=== PATIENT | male | born 1965 | race Caucasian/White ===

== ENCOUNTER 2016-12-28 13:09 | Emergency (ER) | payer OTHER ==
[~2016-12-28] VITALS: Ht 182.9 cm; Wt 76.0 kg
[~2016-12-28 13:09] MED LIST: AMBIEN; AMBIEN CR6.25 MG PO; BACLOFEN10 MG PO; BACTRIM,SEPT1 TABLET; Bactroban Nasal Oint BOTH NARES; COMBIVENT200 INHALA IH; Chronulac,Cephulac,E PO; Colace PO; Combivent IH; DILAUDID4 MG PO; DURAGESIC50 MCG TD; FENTANYL; GABAPENTIN300 MG PO; KADIAN30 MG PO; KEFLEX500 MG; MORPHINE SULFAT30 M5 PO; MS CONTIN,ORAMO15 M1 PO; NEURONTIN600 MG PO; ONDANSETRON HCL4 M1 PO; OXYCODONE-ACET1 EACH PO; PERCOCET; PERCOCET 5/31 TABLET PO; RESTORIL15 MG PO; Robitussin, Organidi PO; SENOKOT S,PE1 TABLET PO; SKELAXIN800 MG PO; SOMA350 MG PO; Tylenol Regular Stre PO; ULTRAM50 MG PO; ZOFRAN4 MG PO; ZYVOX600 MG PO
[2016-12-28] MEDS ORDERED: GABAPENTIN400 MG PO (14:17)
[2016-12-28] MEDS ORDERED: QUETIAPINE FUM200 MG PO (14:18)
[2016-12-28] MEDS ORDERED: METHOCARBAMOL750 MG PO (14:20)
[2016-12-28] MEDS ORDERED: OXYCODONE HCL10 MG PO (14:22)
[2016-12-28] MEDS ORDERED: INDOCIN25 MG PO (14:25)
[2016-12-28] MEDS ORDERED: PREDNISONE20 MG PO (14:25)
[2016-12-28 14:43] VITALS: BP 138/78
== END 2016-12-28 14:44 | disposition home or self-care (01) ==
LOC: EME 13:09 → RME 13:09
DX: M54.42 Lumbago with sciatica, left side (principal); G89.29 Other chronic pain; F17.200 Nicotine dependence, unspecified, uncomplicated; Z98.1 Arthrodesis status; Z88.0 Allergy status to penicillin
CPT/HCPCS: 99281; 99284; J1885; J3010; J7512

== ENCOUNTER 2017-06-20 12:46 | Emergency (ER) | payer OTHER ==
[~2017-06-20] VITALS: Ht 175.3 cm; Wt 73.6 kg
[~2017-06-20 12:46] MED LIST changes: +GABAPENTIN400 MG PO; +INDOCIN25 MG PO; +METHOCARBAMOL750 MG PO; +OXYCODONE HCL10 MG PO; +PREDNISONE20 MG PO; +QUETIAPINE FUM200 MG PO
[2017-06-20] MEDS ORDERED: PERCOCET 5/31 TABLET PO (14:45)
[2017-06-20 14:59] VITALS: BP 166/89
== END 2017-06-20 15:00 | disposition home or self-care (01) ==
LOC: EME 12:46
DX: S20.229A Contusion of unspecified back wall of thorax, initial encounter (principal); W20.8XXA Other cause of strike by thrown, projected or falling object, initial encounter; M54.5 Low back pain; G89.29 Other chronic pain; Z87.891 Personal history of nicotine dependence
CPT/HCPCS: 72100; 99281; 99283

== ENCOUNTER 2017-12-10 23:02 | Emergency (ER) | payer OTHER ==
[~2017-12-10] VITALS: Ht 175.3 cm; Wt 82.8 kg
[2017-12-11] MEDS ORDERED: PERCOCET 5/31 TABLET PO (00:08)
[2017-12-11] MEDS ORDERED: LIDODERM 5% P1 PATCH TD (00:09)
[2017-12-11] MEDS ORDERED: NAPROXEN500 MG PO (00:21)
[2017-12-11 01:20] VITALS: BP 146/87
== END 2017-12-11 01:26 | disposition home or self-care (01) ==
LOC: EXP 23:02 → EME 23:02 → EXP 12-11 01:26
DX: M54.5 Low back pain (principal); R20.0 Anesthesia of skin; W00.0XXA Fall on same level due to ice and snow, initial encounter; Y93.H1 Activity, digging, shoveling and raking; Y92.480 Sidewalk as the place of occurrence of the external cause; G89.29 Other chronic pain; Z79.891 Long term (current) use of opiate analgesic; Z98.1 Arthrodesis status; Z87.891 Personal history of nicotine dependence
CPT/HCPCS: 72070; 72100; 99281; 99284; J1100